=== PATIENT | male | born 1955 | race Caucasian/White ===

== ENCOUNTER 2021-08-22 08:19 | Outpatient (CLI) | payer OTHER | END 2021-08-22 08:21 | disposition home or self-care (01) | LOC: NUCLEAR 08:19 | PROVIDERS: ATTEND Urology | DX: C61 Malignant neoplasm of prostate (principal) | CPT/HCPCS: 78813; 93925; A9503 ==

== ENCOUNTER 2021-08-23 07:22 | Outpatient (CLI) | payer OTHER | END 2021-08-26 16:10 | disposition home or self-care (01) | LOC: TOM 07:22 | PROVIDERS: ATTEND Urology | DX: C61 Malignant neoplasm of prostate (principal) ==

== ENCOUNTER 2021-08-23 09:36 | Outpatient (CLI) | payer OTHER | END 2021-08-23 09:39 | disposition home or self-care (01) | LOC: NUCLEAR 09:36 | PROVIDERS: ATTEND Legal Medicine | DX: I73.9 Peripheral vascular disease, unspecified (principal) ==